=== PATIENT | male | born 1995 | race Caucasian/White ===

== ENCOUNTER 2020-01-22 15:58 | Inpatient (IN) | payer BC ==
[2020-01-22] MEDS ORDERED: SODIUM CHLORIDE 1,000 ML IV STA (15:59)
--- NOTE | 2020-01-22 15:59 | PDOC ---
History of Present Illness - General Chief Complaint: Pain, Acute Stated Complaint: ABD PAIN Time Seen by Provider: 01/22/20 15:58 History Source: Patient Exam Limitations: No Limitations - History of Present Illness Initial Comments: 01/22/20 15:59 HPI No past medical history presenting with periumbilical abdominal pain that started last night around 8 PM, today has migrated to the right lower quadrant, associated with decreased appetite, nausea, vomiting and diarrhea. Pt states last night he had diffuse abdominal pain. This morning he developed sharp RLQ pain, 6/10; he's had 2 episodes of watery brown diarrhea and 1 episode of NBNB emesis. sent in from urgent care for CT, r/o appy Denies fever, chills, chest pain, SOB, palpitation, dizziness, weakness, bladder and bowel problems, hematuria, urgency or frequency, flank pain, testicular or scrotal pain, focal weakness/paresthesias, leg swelling/pain, rash. No sick contacts or travel. No new changes in medications. No suspicious food intake. denies STDs. Allergies: None Past Medical History/PSH: as above Social history: No tobacco, ETOH or drug use. Meds: as documented in EMR Family history: noncontributory Review of systems Constitutional: no fevers or chills. No weakness HEENT: no headache or dizziness. No congestion. No visual/hearing disturbances. CVS: no cp or syncope. Resp: no sob. No cough. Gastrointestinal: +abdominal pain, nausea, vomiting, diarrhea. Genitourinary: no urinary sx, hematuria. no testicular or scrotal pain/swelling MUSCULOSKELETAL: No joint pain and swelling. No neck or back pain. SKIN: no redness or skin changes, no discharge, no rash. No wounds. Hematologic: no easy bruising/bleeding. NEUROLOGIC: No headache, dizziness, LOC or altered mental status. No weakness, numbness or tingling. Psych: no anxiety or depression Allergic/Immunologic: no allergies All other systems reviewed and negative, or as documented in HPI. Physical exam General: Well appearing, awake and alert, NAD. HEENT: NCAT, PERRL, EOMI, clear conjunctiva, anicteric, moist mucus membranes, clear oropharynx, no oral lesions.. Neck: neck supple, FROM Resp: CTAB, normal and even respirations, no respiratory distress CVS: RRR, no murmurs, 2+ peripheral pulses throughout, no peripheral edema Abdomen: soft, Nondistended, +RLQ and suprapubic TTP, no rebound or guarding. No CVAT Back: nontender, normal inspection and ROM MSK: no edema, CAGE x4, ROM intact. No clubbing or cyanosis. normal bulk and tone. Extremities: no calf tenderness Neuro: alert, oriented appropriately; no focal neurologic deficits Psych: Calm and cooperative Skin: warm and well perfused, cap refill <2 sec, normal color, no rash or skin discoloration. 01/22/20 16:37 Past History - Medical History Allergies/Adverse Reactions: Allergies Allergy/AdvReac Type Severity Reaction Status Date / Time No Known Allergies Allergy Verified 01/22/20 16:00 Home Medications: Ambulatory Orders NK [No Known Home Medication] 01/22/20 ED Treatment Course - LABORATORY CBC & Chemistry Diagram: 01/22/20 16:09 01/22/20 16:04 Medical Decision Making - Medical Decision Making 01/22/20 16:39 Vital Signs Temp Pulse Resp BP Pulse Ox 98.2 F 85 18 114/82 100 01/22/20 15:58 01/22/20 15:58 01/22/20 15:58 01/22/20 15:58 01/22/20 15:58 DDx abdominal pain: Renal colic, biliary colic, metabolic/electrolyte derangements. GERD, PUD, esophageal spasm, pancreatitis, hepatitis, constipa tion, colitis, gastroenteritis, cholecystitis, UTI, pyelonephritis, ileus, SBO, medication side effect, hernia, appendicitis, diverticulitis, msk strain, mesenteric adenitis, psoas abscess - no testicular sx to suggest torsion/infection - no peritoneal findings declines analgesia for the time being IVF given labs and lytes_normal, normal wbc ct. UA unremarkable for infection, some ketones, will given some hydration 01/22/20 17:09 CT with concentric wall thickening along the length of the colon suggesting acute colitis. There is also concentric appendiceal wall thickening with associated small amount of intraluminal fluid, mild periappendiceal soft tissue stranding could be appendicitis versus inflammation associated with colitis concomitantly. Patient is tender and clinically correlated for acute appendicitis as well as a colitis IV cefoxitin and flagyl for empiric coverage of appy/colitis Surgery consultation with Dr. James placed discussed clinical findings and CT a/p transfer to [facility] surg bed, plan for OR tomorrow, NPO after midnight pain control, IVF pt made aware of impression and plan. admit to Dr Daniele Ace, preparing for [facility] med/surg bed 01/22/20 17:19 Discharge - Discharge Information Problems reviewed: Yes Clinical Impression/Diagnosis: Colitis, Acute appendicitis Condition: Stable - Admission Yes - Follow up/Referral - Patient Discharge Instructions - Post Discharge Activity
[2020-01-22 16:33] LABS: BASO % 1.1 % (0-2.0); EOS % 1.7 % (0-4.5); HEMATOCRIT 45.3 % (35.4-49); HEMOGLOBIN 16.1 GM/dl (11.7-16.9); LYMPH % 18.7 % (8-40); MCH 29.5 pg (25.7-33.7); MCHC 35.6 g/dl (32.0-35.9); MEAN CELL VOLUME 82.9 fl (80-96); MEAN PLT VOLUME 9.2 fl (7.5-11.1); MONO % 7.8 % (3.8-10.2); NEUT % 70.7 % (42.8-82.8); PLATELET COUNT 227 K/MM3 (134-434); RBC 5.46 M/mm3 (4.00-5.60); RDW 12.2 % (11.9-15.9); WHITE BLOOD COUNT 9.1 K/mm3 (4.0-10.8)
[2020-01-22 16:38] LABS: ALBUMIN 4.6 g/dl (3.4-5.0); CALCIUM 9.4 mg/dl (8.5-10); POTASSIUM 3.8 mmol/L (3.5-5.1); TOT PROT 7.6 g/dl (6.4-8.2)
[2020-01-22] MEDS ORDERED: CEFOXITIN SODIUM 1 GM in DEXTROSE 5%-WATER - 100 ML IVPB ONE (17:15)
[2020-01-22 23:36] VITALS: BMI 22.8
--- NOTE | 2020-01-23 00:08 | PN ---
Teaching Attending Note Name of Resident: Nickolas Ortiz ATTENDING PHYSICIAN STATEMENT I saw and evaluated the patient. I reviewed the resident's note and discussed the case with the resident. I agree with the resident's findings and plan as documented. SUBJECTIVE: 24 years old M with no significant PMH presented to hospital with abd pain. As per patient abd pain was diffuse started last night around 10 pm. Associated symptoms were nausea,vomiting and diarrhea . After waking up pain re occurred and was more pronounced on RLQ \. He had 1 episode of NB vomiting. He denies chest pain, SOB, dizziness, LOC OBJECTIVE: Last Vital Signs Temp Pulse Resp BP Pulse Ox 98.3 F 69 16 122/67 99 01/22/20 21:30 01/22/20 21:30 01/22/20 21:30 01/22/20 21:30 01/22/20 21:30 Laboratory Results - last 24 hr 01/22/20 01/22/20 01/22/20 16:04 16:04 16:07 WBC RBC Hgb Hct MCV MCH MCHC RDW Plt Count MPV Absolute Neuts (auto) Neutrophils % Lymphocytes % Monocytes % Eosinophils % Basophils % Sodium 138 Potassium 3.8 Chloride 102 Carbon Dioxide 27 Anion Gap 9 BUN 11.0 Creatinine 1.0 Est GFR (CKD-EPI)AfAm 121.55 Est GFR (CKD-EPI)NonAf 104.88 Random Glucose 93 Calcium 9.4 Total Bilirubin 2.0 H AST 21 ALT 20 Alkaline Phosphatase 61 Total Protein 7.6 Albumin 4.6 Lipase 58 L Urine Color Yellow Urine Appearance Clear Urine pH 6.0 Urine Protein Negative Urine Glucose (UA) Negative Urine Ketones 2+ H Urine Blood Negative Urine Nitrite Negative Urine Bilirubin 1+ H Urine Urobilinogen 0.2 Ur Leukocyte Esterase Negative Blood Type O POSITIVE Antibody Screen Negative 01/22/20 01/22/20 16:09 16:15 WBC 9.1 RBC 5.46 Hgb 16.1 Hct 45.3 MCV 82.9 MCH 29.5 MCHC 35.6 RDW 12.2 Plt Count 227 MPV 9.2 Absolute Neuts (auto) 6.4 Neutrophils % 70.7 Lymphocytes % 18.7 Monocytes % 7.8 Eosinophils % 1.7 Basophils % 1.1 Sodium Potassium Chloride Carbon Dioxide Anion Gap BUN Creatinine Est GFR (CKD-EPI)AfAm Est GFR (CKD-EPI)NonAf Random Glucose Calcium Total Bilirubin AST ALT Alkaline Phosphatase Total Protein Albumin Lipase Urine Color Urine Appearance Urine pH Urine Protein Urine Glucose (UA) Urine Ketones Urine Blood Urine Nitrite Urine Bilirubin Urine Urobilinogen Ur Leukocyte Esterase Blood Type O POSITIVE Antibody Screen Negative GENERAL: Awake, alert, and fully oriented, not in distress HEAD: Normal with no signs of trauma. EYES: Pupils equal, round and reactive to light, extraocular movements intact, sclera anicteric, conjunctiva clear. EARS, NOSE, THROAT: Oropharynx clear without exudates. Moist mucous membranes. NECK: No JVD, or masses. LUNGS: Breath sounds equal, clear to auscultation bilaterally. No wheezes, and no crackles. No accessory muscle use. HEART: RRR normal S1 and S2 without murmur, rub or gallop. ABDOMEN: Soft, not distended, tender on RLQ, no rigidity, guarding MUSCULOSKELETAL: Normal range of motion at all joints. No CVA tenderness. UPPER EXTREMITIES: 2+ pulses, warm, well-perfused. No peripheral edema. LOWER EXTREMITIES: 2+ pulses, warm, well-perfused. No calf tenderness. No peripheral edema. NEUROLOGICAL: Cranial nerves II-XII intact. Normal speech. PSYCHIATRIC: Cooperative. Good eye contact. Appropriate mood and affect. SKIN: Warm, dry, normal turgor, no rashes or lesions noted. ASSESSMENT AND PLAN: Acute appendicitis Admit to floor IV hydration D5NS 125 ml/hour NPO surgery consulted, OR in AM analgesia PRN He already received 1 dose of antibiotics DVT ppx
--- NOTE | 2020-01-23 00:20 | HP ---
CHIEF COMPLAINT: abdominal pain PCP: none HISTORY OF PRESENT ILLNESS: 24 y/o male with no reported PMH c/o abdominal pain: initially generalized and now located in RLQ, started on evening of 01/20, radiating to umbilicus, sharp, associated non-bloody/non-musous diarrhea x2, associated NBNB emesis x1, worse with food, was 8/10 now there is no pain. This has never happened before. He has not had any new foods, traveled recently or had sick contacts. He denies fever, SOB, CP, joint pain, dysuria, hematuria. ER course was notable for: (1) CT consistent with period appendiceal stranding (2) Surgery consult and schedule for appendectomy 01/22 (3) S/p metronidazole PAST MEDICAL HISTORY: Denies PAST SURGICAL HISTORY: Denies Family history: Denies Social History: Smoking: denies (has tried but not smoked consistently) Alcohol: social (2 etoh beverages per week) Drugs: denies Works at [employer] Allergies: No Known Allergies Allergy (Verified 01/22/20 16:00) HOME MEDICATIONS: Medication Instructions Recorded NK [No Known Home Medication] 01/22/20 REVIEW OF SYSTEMS CONSTITUTIONAL: Absent: fever, chills, diaphoresis, generalized weakness, malaise, loss of appetite, weight change HEENT: Absent: rhinorrhea, nasal congestion, throat pain, throat swelling, difficulty swallowing, mouth swelling, ear pain, eye pain, visual changes CARDIOVASCULAR: Absent: chest pain, syncope, palpitations, irregular heart rate, lightheadedness, peripheral edema RESPIRATORY: Absent: cough, shortness of breath, dyspnea with exertion, orthopnea, wheezing, stridor, hemoptysis GASTROINTESTINAL: Absent: abdominal pain, abdominal distension, nausea, vomiting, diarrhea, constipation, melena, hematochezia GENITOURINARY: Absent: dysuria, frequency, urgency, hesitancy, hematuria, flank pain, genital pain MUSCULOSKELETAL: Absent: myalgia, arthralgia, joint swelling, back pain, neck pain SKIN: Absent: rash, itching, pallor HEMATOLOGIC/IMMUNOLOGIC: Absent: easy bleeding, easy bruising, lymphadenopathy, frequent infections ENDOCRINE: Absent: unexplained weight gain, unexplained weight loss, heat intolerance, cold intolerance NEUROLOGIC: Absent: headache, focal weakness or paresthesias, dizziness, unsteady gait, seizure, mental status changes, bladder or bowel incontinence PSYCHIATRIC: Absent: anxiety, depression, suicidal or homicidal ideation, hallucinations. PHYSICAL EXAMINATION Vital Signs - 24 hr 01/22/20 01/22/20 01/22/20 15:58 19:15 20:22 Temperature 98.2 F 98.0 F Pulse Rate 85 Pulse Rate [ 85 Left] Respiratory 18 18 Rate Blood Pressure 114/82 Blood Pressure 117/77 [Right Arm] O2 Sat by Pulse 100 100 100 Oximetry (%) 01/22/20 01/22/20 21:15 21:30 Temperature 98.3 F Pulse Rate 69 Pulse Rate [ Left] Respiratory 16 Rate Blood Pressure 122/67 Blood Pressure [Right Arm] O2 Sat by Pulse 99 99 Oximetry (%) GENERAL: Awake, alert, and fully oriented, in no acute distress. HEAD: Normal with no signs of trauma. EYES: Pupils equal, round and reactive to light, extraocular movements intact, sclera anicteric, conjunctiva clear. No lid lag. EARS, NOSE, THROAT: Ears normal, nares patent, oropharynx clear without exudates. Moist mucous membranes. NECK: Normal range of motion, supple without lymphadenopathy, JVD, or masses. LUNGS: Breath sounds equal, clear to auscultation bilaterally. No wheezes, and no crackles. No accessory muscle use. HEART: Regular rate and rhythm, normal S1 and S2 without murmur, rub or gallop. ABDOMEN: Soft, TTP on deep palpation to RLQ, not distended, normoactive bowel sounds, no guarding, no rebound, no masses. No hepatomegaly or splenomegaly. MUSCULOSKELETAL: Normal range of motion at all joints. No bony deformities or tenderness. No CVA tenderness. UPPER EXTREMITIES: 2+ pulses, warm, well-perfused. No cyanosis. No clubbing. No peripheral edema. LOWER EXTREMITIES: 2+ pulses, warm, well-perfused. No calf tenderness. No peripheral edema. NEUROLOGICAL: Cranial nerves II-XII intact. Normal speech. Normal gait. PSYCHIATRIC: Cooperative. Good eye contact. Appropriate mood and affect. SKIN: Warm, dry, normal turgor, no rashes or lesions noted, normal capillary refill. Laboratory Results - last 24 hr 01/22/20 01/22/20 01/22/20 16:04 16:04 16:07 WBC RBC Hgb Hct MCV MCH MCHC RDW Plt Count MPV Absolute Neuts (auto) Neutrophils % Lymphocytes % Monocytes % Eosinophils % Basophils % Sodium 138 Potassium 3.8 Chloride 102 Carbon Dioxide 27 Anion Gap 9 BUN 11.0 Creatinine 1.0 Est GFR (CKD-EPI)AfAm 121.55 Est GFR (CKD-EPI)NonAf 104.88 Random Glucose 93 Calcium 9.4 Total Bilirubin 2.0 H AST 21 ALT 20 Alkaline Phosphatase 61 Total Protein 7.6 Albumin 4.6 Lipase 58 L Urine Color Yellow Urine Appearance Clear Urine pH 6.0 Urine Protein Negative Urine Glucose (UA) Negative Urine Ketones 2+ H Urine Blood Negative Urine Nitrite Negative Urine Bilirubin 1+ H Urine Urobilinogen 0.2 Ur Leukocyte Esterase Negative Blood Type O POSITIVE Antibody Screen Negative 01/22/20 01/22/20 16:09 16:15 WBC 9.1 RBC 5.46 Hgb 16.1 Hct 45.3 MCV 82.9 MCH 29.5 MCHC 35.6 RDW 12.2 Plt Count 227 MPV 9.2 Absolute Neuts (auto) 6.4 Neutrophils % 70.7 Lymphocytes % 18.7 Monocytes % 7.8 Eosinophils % 1.7 Basophils % 1.1 Sodium Potassium Chloride Carbon Dioxide Anion Gap BUN Creatinine Est GFR (CKD-EPI)AfAm Est GFR (CKD-EPI)NonAf Random Glucose Calcium Total Bilirubin AST ALT Alkaline Phosphatase Total Protein Albumin Lipase Urine Color Urine Appearance Urine pH Urine Protein Urine Glucose (UA) Urine Ketones Urine Blood Urine Nitrite Urine Bilirubin Urine Urobilinogen Ur Leukocyte Esterase Blood Type O POSITIVE Antibody Screen Negative ASSESSMENT/PLAN: 24 y/o male with no reported PMH c/o abdominal pain for 24, found to have CT findings consistent with appendicitis. # Acute appendicitis - NPO - Pre-op labs, EKG, CXR - D5-NS @ 125 given NPO - Ofirmev for pain # DVT ppx - SCD # FEN - D5NS @ 125 - F/u in routine labs - NPO # Disposition - Admit to med/surg Nickolas Ortiz MD Visit type - Emergency Visit Emergency Visit: Yes ED Registration Date: 01/22/20 Care time: The patient presented to the Emergency Department on the above date and was hospitalized for further evaluation of their emergent condition. - New Patient This patient is new to me today: Yes Date on this admission: 01/23/20 - Critical Care Critical Care patient: No ATTENDING PHYSICIAN STATEMENT I saw and evaluated the patient. I reviewed the resident's note and discussed the case with the resident. I agree with the resident's findings and plan as documented. SUBJECTIVE: OBJECTIVE: ASSESSMENT AND PLAN:
[2020-01-23] MEDS ORDERED: ACETAMINOPHEN 325 MG TABLET (FP) PO PRN (00:21)
[2020-01-23] MEDS: DEXTROSE 5%-NORMAL SALINE 1,000 ML IV SCH ×3 (01:04→23:06)
[2020-01-23] MEDS ORDERED: ACETAMINOPHEN 1000 MG/100 ML VIAL (NON FORMULARY) IVPB PRN (03:16)
[2020-01-23 08:25] LABS: BASO % 0.5 % (0-2.0); EOS % 4.4 % (0-4.5); HEMATOCRIT 42.1 % (35.4-49); HEMOGLOBIN 14.4 GM/dL (11.7-16.9); LYMPH % 29.9 % (8-40); MCHC 34.2 g/dl (32.0-35.9); MEAN PLT VOLUME 9.4 fl (7.5-11.1); MONO % 10.3 % (3.8-10.2); NEUT % 54.9 % (42.8-82.8); PLATELET COUNT 171 K/MM3 (134-434); RBC 4.96 M/mm3 (4.00-5.60); RDW 12.9 % (11.9-15.9); WHITE BLOOD COUNT 4.7 K/mm3 (4.0-10.0)
[2020-01-23 08:43] LABS: ALBUMIN 3.4 g/dl (3.4-5.0); BILIRUBIN,TOTAL 1.4 mg/dL (0.2-1); BLOOD UREA NITROGEN 8.3 mg/dL (7-18); CALCIUM 8.6 mg/dL (8.5-10.1); CREATININE 0.8 mg/dL (0.55-1.3); MAGNESIUM 2.3 mg/dL (1.8-2.4); PHOSPHOROUS 3.2 mg/dL (2.5-4.9); POTASSIUM 3.3 mmol/L (3.5-5.1); TOT PROT 6.3 g/dl (6.4-8.2)
--- NOTE | 2020-01-23 10:44 | CONSULT ---
- Consultation REQUESTING PROVIDER: Maria Guadalupe GIBBONS CONSULT REQUEST: We have been asked to surgically evaluate this patient for poss ible acute appendicitis. PCP:Corrie Briggs HISTORY OF PRESENT ILLNESS:FRANCOP who is a 24 y/o who presented to the [facility] ER c/o abdominal pain; initially pain was crampy and generalized and the ? localized to the RLQ, started on evening of 01/20, radiating to umbilicus, sharp, associated non-bloody/non-musous diarrhea x2, associated emesis x1, worse with food, was 8/10 then no pain. This has never happened before. He has not had any new foods, traveled recently or had sick contacts. He denies fever, SOB, CP, joint pain, dysuria, hematuria. He denies EtOH intake or injury at work. PMHx: none PSHx: none Home Medications Medication Instructions Recorded NK [No Known Home Medication] 01/22/20 Allergies Allergy/AdvReac Type Severity Reaction Status Date / Time No Known Allergies Allergy Verified 01/22/20 16:00 REVIEW OF SYSTEMS: CONSTITUTIONAL: Absent: fever, chills, diaphoresis, generalized weakness, malaise, loss of appetite, weight change CARDIOVASCULAR: Absent: chest pain, syncope, palpitations, irregular heart rate, lightheadedness, peripheral edema RESPIRATORY: Absent: cough, shortness of breath, dyspnea with exertion, wheezing, stridor, hemoptysis GASTROINTESTINAL: Absent: abdominal pain, abdominal distension, nausea, vomiting, diarrhea, constipation, melena, hematochezia GENITOURINARY: Absent: dysuria, frequency, urgency, hesitancy, hematuria, flank pain, genital pain MUSCULOSKELETAL: Absent: myalgia, arthralgia, joint swelling, back pain, neck pain SKIN: Absent: rash, itching, pallor HEMATOLOGIC/IMMUNOLOGIC: Absent: easy bleeding, easy bruising, lymphadenopathy NEUROLOGIC: Absent: headache, focal weakness, paresthesias, dizziness, unsteady gait, seizure, mental status changes, bladder or bowel incontinence PSYCHIATRIC: Absent: anxiety, depression, suicidal or homicidal ideation, hallucinations. PHYSICAL EXAM: GENERAL: Awake, alert, and fully oriented, in no acute distress. HEAD: Normal with no signs of trauma. EYES: sclera anicteric, conjunctiva clear. NECK: Normal ROM, supple without lymphadenopathy, JVD, or masses. LUNGS: Clear to auscultation bilat anteriorly. No wheezes, and no crackles. No accessory muscle use. HEART: Regular rate and rhythm. No murmurs ABDOMEN: Soft,minimal if ant RLQ tenderness, not distended, normoactive bowel sounds, no guarding, no rebound, no masses. No organomegaly. No hernias; Rovsings; psoas and obturator signs are absent. MUSCULOSKELETAL: Normal ROM at all joints. No bony deformities or tenderness. No CVA tenderness. UPPER EXTREMITIES: 2+ pulses, warm, well-perfused. No cyanosis. Cap refill <2 seconds. No peripheral edema. LOWER EXTREMITIES: 2+ pulses, warm, well-perfused. No calf tenderness. No peripheral edema. NEUROLOGICAL: Normal speech, gait not observed. PSYCH: Cooperative. Good eye contact. Appropriate mood and affect. SKIN: Warm, dry, normal turgor, no rashes or lesions noted. Vital Signs Temperature 97.9 F 01/23/20 05:00 Pulse Rate 72 01/23/20 05:00 Respiratory Rate 18 01/23/20 05:00 Blood Pressure 109/68 01/23/20 05:00 O2 Sat by Pulse Oximetry (%) 99 01/23/20 05:00 Lab Results WBC 4.7 K/mm3 (4.0-10.0) 01/23/20 07: RBC 4.96 M/mm3 (4.00-5.60) 01/23/20 07: Hgb 14.4 GM/dL (11.7-16.9) 01/23/20 07: Hct 42.1 % (35.4-49) 01/23/20 07: MCV 85.0 fl (80-96) 01/23/20 07: MCHC 34.2 g/dl (32.0-35.9) 01/23/20 07: RDW 12.9 % (11.9-15.9) 01/23/20 07: Plt Count 171 K/MM3 (134-434) 01/23/20 07:29 Sodium 142 mmol/L (136-145) 01/23/20 07: Potassium 3.3 mmol/L (3.5-5.1) L 01/23/20 07: Chloride 106 mmol/L (98-107) 01/23/20 07:29 Carbon Dioxide 28 mmol/L (21-32) 01/23/20 07:29 Anion Gap 7 MMOL/L (8-16) L 01/23/20 07:29 BUN 8.3 mg/dL (7-18) 01/23/20 07:29 Creatinine 0.8 mg/dL (0.55-1.3) 01/23/20 07:29 Random Glucose 83 mg/dL (74-106) 01/23/20 07:29 Calcium 8.6 mg/dL (8.5-10.1) 01/23/20 07:29 Blood Type O POSITIVE 01/22/20 16:15 Antibody Screen Negative 01/22/20 16:15 CT scan a/p images and reports reviewed. IMP: abdominal pain; paulson colonic inflammation including the appendix; doubt acute appendicitis PLAN: Advise continued NPO/IVF/IVAB's/serial exams; he has no elevated WBC/temperature/VS; he appears comfortable w/o evidence of an acute surgical abdomen at this time. Ulices James MD FACS
[2020-01-23] MEDS: KCL 10 MEQ IVPB 10 MEQ/100 ML INFUS.BAG IVPB SCH ×3 (10:53→14:17)
--- NOTE | 2020-01-23 14:15 | PN ---
Physical Exam: SUBJECTIVE: Patient seen and examined, awake and relaxing comfortably in bed. Not experiencing any more pain. He has not eaten since coming to the hospital but is not feeling particularly hungry. Despite his thin body habitus patient endorsed usually having a strong appetite and eat much food - him not having an appetite now is unusual for him. Denies any other symptoms. Endorsed mild abdominal pain on deep palpation. OBJECTIVE: Vital Signs Period Temp Pulse Resp BP Sys/Puri Pulse Ox Last 24 Hr 97.9 F-98.3 F 69-85 16-18 106-122/55-82 96-100 GENERAL: thin body habitus, male with longer hair, awake, alert, fully oriented, in no acute distress. HEAD: Normal with no signs of trauma. EYES: PERRL, extraocular movements intact. LUNGS: CTAB, no crackles HEART: RRR, S1, S2 without murmur ABDOMEN: Soft, nondistended, active bowel sounds, nontender to shallow palpation, tender on deep palpation EXTREMITIES: 2+ pulses, warm, well-perfused, no edema. NEUROLOGICAL: Normal speech, symmetrical smile PSYCH: Normal mood and normal affect. SKIN: Warm, dry, normal turgor, no rashes or lesions noted Laboratory Results - last 24 hr 01/22/20 01/22/20 01/22/20 16:04 16:04 16:07 WBC RBC Hgb Hct MCV MCH MCHC RDW Plt Count MPV Absolute Neuts (auto) Neutrophils % Lymphocytes % Monocytes % Eosinophils % Basophils % Nucleated RBC % Sodium 138 Potassium 3.8 Chloride 102 Carbon Dioxide 27 Anion Gap 9 BUN 11.0 Creatinine 1.0 Est GFR (CKD-EPI)AfAm 121.55 Est GFR (CKD-EPI)NonAf 104.88 Random Glucose 93 Calcium 9.4 Phosphorus Magnesium Total Bilirubin 2.0 H AST 21 ALT 20 Alkaline Phosphatase 61 Total Protein 7.6 Albumin 4.6 Lipase 58 L Urine Color Yellow Urine Appearance Clear Urine pH 6.0 Urine Protein Negative Urine Glucose (UA) Negative Urine Ketones 2+ H Urine Blood Negative Urine Nitrite Negative Urine Bilirubin 1+ H Urine Urobilinogen 0.2 Ur Leukocyte Esterase Negative COVID-19 ([facility]) Blood Type O POSITIVE Antibody Screen Negative 01/22/20 01/22/20 01/22/20 16:09 16:15 17:15 WBC 9.1 RBC 5.46 Hgb 16.1 Hct 45.3 MCV 82.9 MCH 29.5 MCHC 35.6 RDW 12.2 Plt Count 227 MPV 9.2 Absolute Neuts (auto) 6.4 Neutrophils % 70.7 Lymphocytes % 18.7 Monocytes % 7.8 Eosinophils % 1.7 Basophils % 1.1 Nucleated RBC % Sodium Potassium Chloride Carbon Dioxide Anion Gap BUN Creatinine Est GFR (CKD-EPI)AfAm Est GFR (CKD-EPI)NonAf Random Glucose Calcium Phosphorus Magnesium Total Bilirubin AST ALT Alkaline Phosphatase Total Protein Albumin Lipase Urine Color Urine Appearance Urine pH Urine Protein Urine Glucose (UA) Urine Ketones Urine Blood Urine Nitrite Urine Bilirubin Urine Urobilinogen Ur Leukocyte Esterase COVID-19 ([facility]) Not detected Blood Type O POSITIVE Antibody Screen Negative 01/23/20 01/23/20 07:29 07:29 WBC 4.7 RBC 4.96 Hgb 14.4 Hct 42.1 MCV 85.0 MCH 29.0 MCHC 34.2 RDW 12.9 Plt Count 171 MPV 9.4 Absolute Neuts (auto) 2.6 Neutrophils % 54.9 Lymphocytes % 29.9 Monocytes % 10.3 H Eosinophils % 4.4 Basophils % 0.5 Nucleated RBC % 0 Sodium 142 Potassium 3.3 L Chloride 106 Carbon Dioxide 28 Anion Gap 7 L BUN 8.3 Creatinine 0.8 Est GFR (CKD-EPI)AfAm 144.91 Est GFR (CKD-EPI)NonAf 125.03 Random Glucose 83 Calcium 8.6 Phosphorus 3.2 Magnesium 2.3 Total Bilirubin 1.4 H AST 12 L ALT 18 Alkaline Phosphatase 60 Total Protein 6.3 L Albumin 3.4 Lipase Urine Color Urine Appearance Urine pH Urine Protein Urine Glucose (UA) Urine Ketones Urine Blood Urine Nitrite Urine Bilirubin Urine Urobilinogen Ur Leukocyte Esterase COVID-19 ([facility]) Blood Type Antibody Screen Active Medications Generic Name Dose Route Start Last Admin Trade Name Freq PRN Reason Stop Dose Admin Acetaminophen 1,000 mg 01/23/20 03:16 Ofirmev Injection - IVPB 01/24/20 03:17 Q6H PRN PAIN LEVEL 6-10 Dextrose/Sodium Chloride 1,000 mls @ 125 mls/hr 01/23/20 00:30 01/23/20 10:53 D5-Ns - IV 125 mls/hr ASDIR HOA Administration ASSESSMENT/PLAN: 24yo M with no significant PMHx presented with 1 day of abdominal pain, found to have CT findings consistent with acute colitis and appendiceal findings suggestive of primary appendicitis vs. appendectual inflammation associated with colitis. Was seen by Dr. James who does not currently recommend surgery. Symptoms improving and patient remains afebrile without leukocytosis. # acute colitis extending to the appendix - symptomatic improvement possible diagnosis: appendicitis, new-onset IBS, Crohn's disease vs. ulcerative colitis (IBD), COVID-related colitis. patient has never had these symptoms before. - received one dose of Cefoxitin and Metronidazole - started sozyn - ID consulted - appreciate recs - Continue clinically monitoring the patient - continue D5NS 125cc/h - continue Ofirmev for pain PRN # ID - COVID not detected # DVT ppx - SCDs # FEN - D5NS @ 125 - replete lytes PRN - NPO # Disposition - Admit to med/surg Visit type - Emergency Visit Emergency Visit: Yes ED Registration Date: 01/22/20 Care time: The patient presented to the Emergency Department on the above date and was hospitalized for further evaluation of their emergent condition. - New Patient This patient is new to me today: Yes Date on this admission: 01/23/20 - Critical Care Critical Care patient: No ATTENDING PHYSICIAN STATEMENT I saw and evaluated the patient. I reviewed the resident's note and discussed the case with the resident. I agree with the resident's findings and plan as documented. SUBJECTIVE: OBJECTIVE: ASSESSMENT AND PLAN:
[2020-01-23] MEDS ORDERED: PIPERACILLIN/TAZOB 3.375 GM 3.375 GM in DEXTROSE 5%-WATER - 50 ML IVPB SCH (15:15)
[2020-01-23] MEDS ORDERED: PIPERACILLIN/TAZOBACTAM 3.375 GM VIAL IVPB ONE (16:34)
[2020-01-23] MEDS ORDERED: DEXTROSE 5%-WATER - 50 ML IVPB ONE (16:34)
--- NOTE | 2020-01-23 16:48 | PN ---
Progress Note (short form) - Note Progress Note: ID CONSULT DICTATED PANCOLITIS ? ETIOLOGY OBTAIN BLOOD, STOOL CULTURES EMPIRIC ZOSYN
[2020-01-23] MEDS: PIPERACILLIN/TAZOB 3.375 GM 3.375 GM in DEXTROSE 5%-WATER - 50 ML IVPB SCH (17:13)
--- NOTE | 2020-01-23 18:23 | PN ---
Teaching Attending Note Name of Resident: Olga Cassidy ATTENDING PHYSICIAN STATEMENT I saw and evaluated the patient. I reviewed the resident's note and discussed the case with the resident. I agree with the resident's findings and plan as documented. SUBJECTIVE: Patient is feeling better, no fever or chills. OBJECTIVE: Vital Signs Temperature 97.9 F 01/23/20 14:00 Pulse Rate 67 01/23/20 14:00 Respiratory Rate 18 01/23/20 14:00 Blood Pressure 117/50 L 01/23/20 14:00 O2 Sat by Pulse Oximetry (%) 99 01/23/20 14:00 PE;per resident's note mild abdominal tenderness CBCD WBC 4.7 K/mm3 (4.0-10.0) 01/23/20 07: RBC 4.96 M/mm3 (4.00-5.60) 01/23/20 07:29 Hgb 14.4 GM/dL (11.7-16.9) 01/23/20 07: Hct 42.1 % (35.4-49) 01/23/20 07: MCV 85.0 fl (80-96) 01/23/20 07: MCHC 34.2 g/dl (32.0-35.9) 01/23/20 07: RDW 12.9 % (11.9-15.9) 01/23/20 07: Plt Count 171 K/MM3 (134-434) 01/23/20 07: MPV 9.4 fl (7.5-11.1) 01/23/20 07:29 CMP Sodium 142 mmol/L (136-145) 01/23/20 07: Potassium 3.3 mmol/L (3.5-5.1) L 01/23/20 07: Chloride 106 mmol/L (98-107) 01/23/20 07: Carbon Dioxide 28 mmol/L (21-32) 01/23/20 07:29 Anion Gap 7 MMOL/L (8-16) L 01/23/20 07:29 BUN 8.3 mg/dL (7-18) 01/23/20 07:29 Creatinine 0.8 mg/dL (0.55-1.3) 01/23/20 07:29 Random Glucose 83 mg/dL (74-106) 01/23/20 07:29 Calcium 8.6 mg/dL (8.5-10.1) 01/23/20 07:29 Total Bilirubin 1.4 mg/dL (0.2-1) H 01/23/20 07:29 AST 12 U/L (15-37) L 01/23/20 07:29 ALT 18 U/L (13-61) 01/23/20 07:29 Alkaline Phosphatase 60 U/L (45-117) 01/23/20 07:29 Total Protein 6.3 g/dl (6.4-8.2) L 01/23/20 07:29 Albumin 3.4 g/dl (3.4-5.0) 01/23/20 07:29 Current Medications Generic Name Dose Route Start Last Admin Trade Name Freq PRN Reason Stop Dose Admin Acetaminophen 1,000 mg 01/23/20 03:16 Ofirmev Injection - IVPB 01/24/20 03:17 Q6H PRN PAIN LEVEL 6-10 Dextrose/Sodium Chloride 1,000 mls @ 125 mls/hr 01/23/20 00:30 01/23/20 10:53 D5-Ns - IV 125 mls/hr ASDIR HOA Administration Piperacillin Sod/Tazobactam 50 mls @ 100 mls/hr 01/23/20 18:00 01/23/20 17:13 Sod 3.375 gm/ Dextrose IVPB Not Given Q8H-IV HOA Protocol Home Medications Medication Instructions Recorded NK [No Known Home Medication] 01/22/20 ASSESSMENT AND PLAN: This patient is a 24yom with no significant PMHx presented with 1 day of abdominal pain, and was found to have on CT: consistent with acute colitis / appendiceal findings suggestive of primary appendicitis vs. appendectual inflammation associated with colitis. Was seen by Dr. James who does not currently recommend surgery. Symptoms improving and patient remains afebrile without leukocytosis. # acute colitis extending to the appendix - as per Surgery , no need for surgery , continue IV antibiotics racheln , ID on the case, continue NPO for now - COVID not detected DVT ppx: SCDs
[2020-01-24] MEDS ORDERED: DEXTROSE 5%-WATER - 50 ML IVPB ONE ×3 (02:08→17:02)
[2020-01-24] MEDS ORDERED: PIPERACILLIN/TAZOBACTAM 3.375 GM VIAL IVPB ONE ×3 (02:08→17:02)
[2020-01-24] MEDS: DEXTROSE 5%-NORMAL SALINE 1,000 ML IV SCH ×3 (02:12→16:52)
[2020-01-24] MEDS: PIPERACILLIN/TAZOB 3.375 GM 3.375 GM in DEXTROSE 5%-WATER - 50 ML IVPB SCH ×3 (02:13→17:04)
[2020-01-24 08:12] LABS: BASO % 0.6 % (0-2.0); EOS % 5.4 % (0-4.5); HEMATOCRIT 42.4 % (35.4-49); HEMOGLOBIN 14.4 GM/dL (11.7-16.9); LYMPH % 31.6 % (8-40); MCH 28.8 pg (25.7-33.7); MCHC 33.9 g/dl (32.0-35.9); MEAN PLT VOLUME 9.5 fl (7.5-11.1); MONO % 11.3 % (3.8-10.2); NEUT % 51.1 % (42.8-82.8); PLATELET COUNT 188 K/MM3 (134-434); RBC 4.99 M/mm3 (4.00-5.60); RDW 13.2 % (11.9-15.9); WHITE BLOOD COUNT 4.6 K/mm3 (4.0-10.0)
[2020-01-24 08:38] LABS: ALBUMIN 3.4 g/dl (3.4-5.0); BLOOD UREA NITROGEN 6.4 mg/dL (7-18); CALCIUM 8.7 mg/dL (8.5-10.1); CREATININE 0.9 mg/dL (0.55-1.3); MAGNESIUM 2.2 mg/dL (1.8-2.4); PHOSPHOROUS 3.2 mg/dL (2.5-4.9); POTASSIUM 4.6 mmol/L (3.5-5.1)
[2020-01-24 08:41] LABS: BILIRUBIN,TOTAL 1.1 mg/dL (0.2-1); TOT PROT 6.1 g/dl (6.4-8.2)
--- NOTE | 2020-01-24 10:08 | PN ---
Progress Note (short form) - Note Progress Note: Attending Surgeon Seen in f/u; no c/o; he was started on clear liquids which he is tolerating; had loose stools VSS AF abdo-soft; non tender WBC-nl IMP: paulson colitis of ? origin PLAN: Continue as per primary team and GI; no evidence of an acute surgical abdomen. Ulices James MD FACS
--- NOTE | 2020-01-24 14:17 | PN ---
Physical Exam: SUBJECTIVE: Patient seen and examined, sleeping comfortably and easily arousable. Had some loose stools but otherwise denies any sorts of pain, diarrhea, vomitting, nausea, chills, SOB and is overall feling well besides being hungry. No events overnight. OBJECTIVE: Vital Signs Period Temp Pulse Resp BP Sys/Puri Pulse Ox Last 24 Hr 97.3 F-98.4 F 52-77 18-20 105-133/54-85 97-100 GENERAL: thin body habitus, male with longer hair, sleeping but easily arousable, alert, fully oriented, in no acute distress. HEAD: Normal with no signs of trauma. EYES: PERRL, extraocular movements intact. LUNGS: CTAB, no crackles HEART: RRR, S1, S2 without murmur ABDOMEN: Soft, nondistended, active bowel sounds, nontender to shallow and deep palpation EXTREMITIES: 2+ pulses, warm, well-perfused, no edema, negative obturator and psoas sign NEUROLOGICAL: Normal speech, symmetrical smile PSYCH: Normal mood and normal affect. SKIN: Warm, dry, normal turgor, no rashes or lesions noted Laboratory Results - last 24 hr 01/24/20 01/24/20 07:10 07:10 WBC 4.6 RBC 4.99 Hgb 14.4 Hct 42.4 MCV 85.0 MCH 28.8 MCHC 33.9 RDW 13.2 Plt Count 188 MPV 9.5 Absolute Neuts (auto) 2.4 Neutrophils % 51.1 Lymphocytes % 31.6 Monocytes % 11.3 H Eosinophils % 5.4 H Basophils % 0.6 Nucleated RBC % 0 Sodium 141 Potassium 4.6 Chloride 108 H Carbon Dioxide 29 Anion Gap 4 L BUN 6.4 L Creatinine 0.9 Est GFR (CKD-EPI)AfAm 138.06 Est GFR (CKD-EPI)NonAf 119.12 Random Glucose 104 Calcium 8.7 Phosphorus 3.2 Magnesium 2.2 Total Bilirubin 1.1 H AST 15 ALT 18 Alkaline Phosphatase 53 Total Protein 6.1 L Albumin 3.4 Active Medications Generic Name Dose Route Start Last Admin Trade Name Freq PRN Reason Stop Dose Admin Dextrose/Sodium Chloride 1,000 mls @ 125 mls/hr 01/23/20 00:30 01/24/20 06:42 D5-Ns - IV 125 mls/hr ASDIR HOA Administration Piperacillin Sod/Tazobactam 50 mls @ 100 mls/hr 01/23/20 18:00 01/24/20 10:49 Sod 3.375 gm/ Dextrose IVPB 100 mls/hr Q8H-IV HOA Administration Protocol ASSESSMENT/PLAN: 24yo M with no significant PMHx presented with 1 day of abdominal pain, found to have CT findings consistent with acute colitis and appendiceal findings suggestive of primary appendicitis vs. appendectual inflammation associated with colitis. Dr. James is following - does not currently recommend surgery. Symptoms improving and patient remains afebrile without leukocytosis. # acute colitis extending to the appendix - symptomatic improvement possible diagnosis: appendicitis, new-onset IBS, Crohn's disease vs. ulcerative colitis (IBD), COVID-related colitis. patient has never had these symptoms before. none of his family members have had similar symptoms and/or hospitalization - continue sozyn - ID consulted - appreciate recs: obtain stool and blood cultures - Continue clinically monitoring the patient - continue D5NS 125cc/h - continue Ofirmev for pain PRN # ID - COVID not detected - stool ova & parasite wet mount pending - ordered strongiloides antibody test as patient has mildly increasing monocytes and eosinophils - blood and stool cultures pending # DVT ppx - SCDs # FEN - D5NS @ 100 - replete lytes PRN - NPO # Disposition - Admit to med/surg Visit type - Emergency Visit Emergency Visit: No - New Patient This patient is new to me today: No - Critical Care Critical Care patient: No ATTENDING PHYSICIAN STATEMENT I saw and evaluated the patient. I reviewed the resident's note and discussed the case with the resident. I agree with the resident's findings and plan as documented. SUBJECTIVE: OBJECTIVE: ASSESSMENT AND PLAN:
--- NOTE | 2020-01-24 15:35 | PN ---
Progress Note, Physician History of Present Illness: CLINICALLY IMPROVED NO C/O ABDOMINAL PAIN NO N/V + LOOSE BM TODAY NO BLOOD NO F/C TOLERATING LIQUIDS - Current Medication List Current Medications: Active Medications Dextrose/Sodium Chloride (D5-Ns -) 1,000 mls @ 125 mls/hr IV ASDIR HOA Last Admin: 01/24/20 06:42 Dose: 125 mls/hr Documented by: Piperacillin Sod/Tazobactam (Sod 3.375 gm/ Dextrose) 50 mls @ 100 mls/hr IVPB Q8H-IV HOA; Protocol Last Admin: 01/24/20 10:49 Dose: 100 mls/hr Documented by: - Objective Vital Signs: Vital Signs Temperature 98.1 F 01/24/20 14:00 Pulse Rate 63 01/24/20 14:00 Respiratory Rate 01/24/20 14:00 Blood Pressure 109/61 01/24/20 14:00 O2 Sat by Pulse Oximetry (%) 99 01/24/20 14:00 Constitutional: Yes: No Distress Eyes: Yes: Conjunctiva Clear Cardiovascular: Yes: Regular Rate and Rhythm, S1, S2 Respiratory: Yes: CTA Bilaterally Gastrointestinal: Yes: Normal Bowel Sounds, Soft. No: Tenderness Edema: No Labs: CBC, BMP 01/24/20 07:10 01/24/20 07:10 Assessment/Plan COLITIS ? ETIOLOGY CLINICALLY IMPROVED STOOL STUDIES PENDING CONTINUE EMPIRIC ZOSYN
--- NOTE | 2020-01-24 16:24 | PN ---
Teaching Attending Note Name of Resident: Olga Cassidy ATTENDING PHYSICIAN STATEMENT I saw and evaluated the patient. I reviewed the resident's note and discussed the case with the resident. I agree with the resident's findings and plan as documented. SUBJECTIVE: OBJECTIVE: Vital Signs Temperature 98.1 F 01/24/20 14:00 Pulse Rate 63 01/24/20 14:00 Respiratory Rate 20 01/24/20 14:00 Blood Pressure 109/61 01/24/20 14:00 O2 Sat by Pulse Oximetry (%) 99 01/24/20 14:00 PE: no abdominal pain noted, per resident's note CBCD WBC 4.6 K/mm3 (4.0-10.0) 01/24/20 07:10 RBC 4.99 M/mm3 (4.00-5.60) 01/24/20 07:10 Hgb 14.4 GM/dL (11.7-16.9) 01/24/20 07:10 Hct 42.4 % (35.4-49) 01/24/20 07:10 MCV 85.0 fl (80-96) 01/24/20 07:10 MCHC 33.9 g/dl (32.0-35.9) 01/24/20 07:10 RDW 13.2 % (11.9-15.9) 01/24/20 07:10 Plt Count 188 K/MM3 (134-434) 01/24/20 07:10 MPV 9.5 fl (7.5-11.1) 01/24/20 07:10 CMP Sodium 141 mmol/L (136-145) 01/24/20 07:10 Potassium 4.6 mmol/L (3.5-5.1) 01/24/20 07:10 Chloride 108 mmol/L (98-107) H 01/24/20 07:10 Carbon Dioxide 29 mmol/L (21-32) 01/24/20 07:10 Anion Gap 4 MMOL/L (8-16) L 01/24/20 07:10 BUN 6.4 mg/dL (7-18) L 01/24/20 07:10 Creatinine 0.9 mg/dL (0.55-1.3) 01/24/20 07:10 Random Glucose 104 mg/dL (74-106) 01/24/20 07:10 Calcium 8.7 mg/dL (8.5-10.1) 01/24/20 07:10 Total Bilirubin 1.1 mg/dL (0.2-1) H 01/24/20 07:10 AST 15 U/L (15-37) 01/24/20 07:10 ALT 18 U/L (13-61) 01/24/20 07:10 Alkaline Phosphatase 53 U/L (45-117) 01/24/20 07:10 Total Protein 6.1 g/dl (6.4-8.2) L 01/24/20 07:10 Albumin 3.4 g/dl (3.4-5.0) 01/24/20 07:10 Current Medications Generic Name Dose Route Start Last Admin Trade Name Freq PRN Reason Stop Dose Admin Dextrose/Sodium Chloride 1,000 mls @ 125 mls/hr 01/23/20 00:30 01/24/20 06:42 D5-Ns - IV 125 mls/hr ASDIR HOA Administration Piperacillin Sod/Tazobactam 50 mls @ 100 mls/hr 01/23/20 18:00 01/24/20 10:49 Sod 3.375 gm/ Dextrose IVPB 100 mls/hr Q8H-IV HOA Administration Protocol Microbiology 01/23/20 17:40 Stool Clostridioides difficile Antigen - Final 01/23/20 17:40 Stool Clostridioides difficile Toxin Assay - Final negative result ASSESSMENT AND PLAN: This patient is a 24yom with no significant PMHx presented with 1 day of abdominal pain, found to have on CT findings consistent with acute colitis and appendiceal findings suggestive of primary appendicitis vs. appendectual inflammation associated with colitis. Was seen by Dr. James who does not currently recommend surgery. Symptoms improving and patient remains afebrile without leukocytosis. # acute colitis extending to the appendix - as per Surgery , no need for surgery , discussed with Dr ochoa upon dc to discharge the patient on cipro and flagyl, follow up with David within a week, and CT to be repeated in 2 weeks, continue IV zosyn , on full liquid diet - COVID not detected DVT ppx: SCDs
[2020-01-25] MEDS ORDERED: DEXTROSE 5%-WATER - 50 ML IVPB ONE ×2 (00:59→08:31)
[2020-01-25] MEDS ORDERED: PIPERACILLIN/TAZOBACTAM 3.375 GM VIAL IVPB ONE ×2 (00:59→08:30)
[2020-01-25] MEDS: DEXTROSE 5%-NORMAL SALINE 1,000 ML IV SCH ×2 (01:03→11:23)
[2020-01-25] MEDS: PIPERACILLIN/TAZOB 3.375 GM 3.375 GM in DEXTROSE 5%-WATER - 50 ML IVPB SCH ×2 (01:04→09:11)
[2020-01-25 09:06] LABS: BASO % 0.8 % (0-2.0); EOS % 4.8 % (0-4.5); HEMOGLOBIN 14.5 GM/dL (11.7-16.9); LYMPH % 36.3 % (8-40); MCH 28.8 pg (25.7-33.7); MCHC 33.8 g/dl (32.0-35.9); MEAN PLT VOLUME 9.4 fl (7.5-11.1); MONO % 9.3 % (3.8-10.2); NEUT % 48.8 % (42.8-82.8); PLATELET COUNT 207 K/MM3 (134-434); RBC 5.06 M/mm3 (4.00-5.60); RDW 13.3 % (11.9-15.9); WHITE BLOOD COUNT 4.6 K/mm3 (4.0-10.0)
[2020-01-25 09:29] LABS: ALBUMIN 3.4 g/dl (3.4-5.0); BILIRUBIN,TOTAL 0.8 mg/dL (0.2-1); CALCIUM 8.8 mg/dL (8.5-10.1); CREATININE 0.9 mg/dL (0.55-1.3); MAGNESIUM 2.2 mg/dL (1.8-2.4); PHOSPHOROUS 3.3 mg/dL (2.5-4.9); POTASSIUM 4.3 mmol/L (3.5-5.1); TOT PROT 6.2 g/dl (6.4-8.2)
[2020-01-25 09:34] LABS: BLOOD UREA NITROGEN 2.7 mg/dL (7-18)
--- NOTE | 2020-01-25 11:29 | EKG ---
Test Reason : Blood Pressure : / mmHG Vent. Rate : 066 BPM Atrial Rate : 066 BPM P-R Int : 140 ms QRS Dur : 098 ms QT Int : 406 ms P-R-T Axes : 047 063 057 degrees QTc Int : 425 ms NORMAL SINUS RHYTHM NORMAL ECG NO PREVIOUS ECGS AVAILABLE Confirmed by ROSHNI PRESLEY MD ([id number]) on 01/25/2020 11:28:56 AM Referred By: Confirmed By:ROSHNI PRESLEY MD
[2020-01-25 14:46] VITALS: BP 130/69; PULSE 73; TEMP 98.3
--- NOTE | 2020-01-25 15:07 | PN ---
Progress Note, Physician History of Present Illness: CLINICALLY IMPROVED NO C/O ABDOMINAL PAIN NO N/V SEMI-FORMED BM TODAY NO BLOOD NO F/C TOLERATING LIQUIDS - Objective Vital Signs: Vital Signs Temperature 98.3 F 01/25/20 14:00 Pulse Rate 73 01/25/20 14:00 Respiratory Rate 18 01/25/20 14:00 Blood Pressure 130/69 01/25/20 14:00 O2 Sat by Pulse Oximetry (%) 99 01/25/20 14:00 Constitutional: Yes: No Distress Eyes: Yes: Conjunctiva Clear Cardiovascular: Yes: Regular Rate and Rhythm, S1, S2 Respiratory: Yes: CTA Bilaterally Gastrointestinal: Yes: Normal Bowel Sounds, Soft. No: Tenderness Edema: No Labs: CBC, BMP 01/25/20 08:08 01/25/20 08:08 Assessment/Plan COLITIS ? ETIOLOGY CLINICALLY IMPROVED STOOL STUDIES NEGATIVE AGREE WITH ORAL ANTIBIOTIC THERAPY, OUTPATIENT GI FOLLOWUP
--- NOTE | 2020-01-25 15:22 | DS ---
Physical Exam: SUBJECTIVE: Patient seen and examined, feeling himself with no pain. Slept well and was able to walk around the hallway yesterday. Said that the liquid diet has been "okay" but that he is still a bit hungry. OBJECTIVE: Vital Signs Period Temp Pulse Resp BP Sys/Puri Pulse Ox Last 24 Hr 97.6 F-98.3 F 54-73 16-20 101-130/53-69 96-99 PHYSICAL EXAM GENERAL: thin body habitus, male with longer hair, sleeping but easily arousable, alert, fully oriented, in no acute distress. HEAD: Normal with no signs of trauma. EYES: PERRL, extraocular movements intact. LUNGS: CTAB, no crackles HEART: RRR, S1, S2 without murmur ABDOMEN: Soft, nondistended, active bowel sounds, nontender to shallow and deep palpation EXTREMITIES: 2+ pulses, warm, well-perfused, no edema, negative obturator and psoas sign NEUROLOGICAL: Normal speech, symmetrical smile PSYCH: Normal mood and normal affect. SKIN: Warm, dry, normal turgor, no rashes or lesions noted LABS Laboratory Results - last 24 hr 01/25/20 01/25/20 08:08 08:08 WBC 4.6 RBC 5.06 Hgb 14.5 Hct 43.0 MCV 85.0 MCH 28.8 MCHC 33.8 RDW 13.3 Plt Count 207 MPV 9.4 Absolute Neuts (auto) 2.3 Neutrophils % 48.8 Lymphocytes % 36.3 Monocytes % 9.3 Eosinophils % 4.8 H Basophils % 0.8 Nucleated RBC % 0 Sodium 142 Potassium 4.3 Chloride 109 H Carbon Dioxide 30 Anion Gap 3 L BUN 2.7 L* Creatinine 0.9 Est GFR (CKD-EPI)AfAm 138.06 Est GFR (CKD-EPI)NonAf 119.12 Random Glucose 105 Calcium 8.8 Phosphorus 3.3 Magnesium 2.2 Total Bilirubin 0.8 AST 11 L ALT 15 Alkaline Phosphatase 53 Total Protein 6.2 L Albumin 3.4 HOSPITAL COURSE: 24yo M with no significant PMHx presented to the hospital on 01/22/2020 with 1 day of abdominal pain,non-bloody/non-musous diarrhea x2, and NBNB emesis x1 found. CT findings were consistent with acute colitis and appendiceal findings suggestive of primary appendicitis vs. appendectual inflammation associated with colitis. Patient was seen by surgery who did not see the need for any acute procedure. Patient was treated with fluids, abx, and pain was well controlled. P atient will follow up with GI in one week and will receive repeat CT scan in two weeks. Patient remains afebrile without leukocytosis and has been optimized for discharge home. Date of Admission:01/22/20 Date of Discharge: 01/25/20 Minutes to complete discharge: 37 Discharge Summary Problems reviewed: Yes Reason For Visit: APPENDICITIS Condition: Stable - Instructions Diet, Activity, Other Instructions: Hospital course: You came to the hospital due to severe abdominal pain, diarrhea and vomiting, and were found to have inflammation of your large intestine. We treated you with fluids and medications to help you feel better. Medications: We are sending you home with the following medications, please make sure to take them exactly as prescribed. - Levofloxacin 500mg once per day for 10 days. Take your first dose on 01/26/2020. - Metronidazole (flagyl) 500mg every 8 hours for 10 days. This means you will take 3 doses each day . Take your first dose on 01/26/2020. NO alcohol with Flagyl since can cause a major reaction for as little as 3ml alcohol. Follow-up appointments: Please follow up with your umbrella repairer Dr. Hernandez in one week. Imaging: You will need a repeat CT scan in two weeks - discuss this with Dr. Hernandez as he will be ordering this for you. Diet: It is very important that you stay away from any foods that can cause bloating or irritation. Therefore, avoid fatty foods or foods with much fiber and eat a "low residue" diet. Activity/Exercise: We recommend NO exercise as you intestines are in the healing process. Also, please keep in mind that sexual activity is considered exercise and could poten tially also cause you harm in these circumstances. Therefore, use caution if engaging in sexual activities. Other instructions: If you experience worsening of your symptoms such as worsening abdominal pain, nausea, vomiting, diarrhea, fever/chills, please report to the nearest emergency room or call 911. Referrals: Richar Hernandez MD [Staff Physician] - 1 Week Disposition: HOME - Home Medications Comprehensive Discharge Medication List: Ambulatory Orders Levofloxacin [Levaquin] 500 mg PO DAILY 10 Days #10 tablet 01/25/20 Metronidazole 500 mg PO Q8H 10 Days #30 tablet 01/25/20 This patient is new to me today: No Emergency Visit: Yes ED Registration Date: 01/22/20 Care time: The patient presented to the Emergency Department on the above date and was hospitalized for further evaluation of their emergent condition. Critical Care patient: No - Discharge Referral Referred to [facility] Med P.C.: No ATTENDING PHYSICIAN STATEMENT I saw and evaluated the patient. I reviewed the resident's note and discussed the case with the resident. I agree with the resident's findings and plan as documented. SUBJECTIVE: OBJECTIVE: ASSESSMENT AND PLAN:
--- NOTE | 2020-01-25 16:52 | PN ---
Teaching Attending Note Name of Resident: Olga Cassidy ATTENDING PHYSICIAN STATEMENT I saw and evaluated the patient. I reviewed the resident's note and discussed the case with the resident. I agree with the resident's findings and plan as documented. SUBJECTIVE: Patient is feeling better with no fever or chills, no abdominal pain. OBJECTIVE: Vital Signs Temperature 98.3 F 01/25/20 14:00 Pulse Rate 73 01/25/20 14:00 Respiratory Rate 18 01/25/20 14:00 Blood Pressure 130/69 01/25/20 14:00 O2 Sat by Pulse Oximetry (%) 99 01/25/20 14:00 PE: per resident's note CBCD WBC 4.6 K/mm3 (4.0-10.0) 01/25/20 08:08 RBC 5.06 M/mm3 (4.00-5.60) 01/25/20 08:08 Hgb 14.5 GM/dL (11.7-16.9) 01/25/20 08:08 Hct 43.0 % (35.4-49) 01/25/20 08:08 MCV 85.0 fl (80-96) 01/25/20 08:08 MCHC 33.8 g/dl (32.0-35.9) 01/25/20 08:08 RDW 13.3 % (11.9-15.9) 01/25/20 08:08 Plt Count 207 K/MM3 (134-434) 01/25/20 08:08 MPV 9.4 fl (7.5-11.1) 01/25/20 08:08 CMP Sodium 142 mmol/L (136-145) 01/25/20 08:08 Potassium 4.3 mmol/L (3.5-5.1) 01/25/20 08:08 Chloride 109 mmol/L (98-107) H 01/25/20 08:08 Carbon Dioxide 30 mmol/L (21-32) 01/25/20 08:08 Anion Gap 3 MMOL/L (8-16) L 01/25/20 08:08 BUN 2.7 mg/dL (7-18) L* 01/25/20 08:08 Creatinine 0.9 mg/dL (0.55-1.3) 01/25/20 08:08 Random Glucose 105 mg/dL (74-106) 01/25/20 08:08 Calcium 8.8 mg/dL (8.5-10.1) 01/25/20 08:08 Total Bilirubin 0.8 mg/dL (0.2-1) 01/25/20 08:08 AST 11 U/L (15-37) L 01/25/20 08:08 ALT 15 U/L (13-61) 01/25/20 08:08 Alkaline Phosphatase 53 U/L (45-117) 01/25/20 08:08 Total Protein 6.2 g/dl (6.4-8.2) L 01/25/20 08:08 Albumin 3.4 g/dl (3.4-5.0) 01/25/20 08:08 Home Medications Medication Instructions Recorded Levofloxacin [Levaquin] 500 mg PO DAILY 10 Days #10 tablet 01/25/20 Metronidazole 500 mg PO Q8H 10 Days #30 tablet 01/25/20 Microbiology 01/23/20 17:40 Stool Salmonella/Shigella Culture - Preliminary NO ENTERIC PATHOGENS, 24 HOURS, ON PRIMARY PLATES 01/23/20 17:40 Stool Vibrio Culture - Final NO GROWTH OF VIBRIO SPECIES OBTAINED 01/23/20 17:40 Stool Escherichia coli 0157 Culture - Final NO GROWTH OF E COLI 0157 OBTAINED 01/23/20 18:50 Blood - Peripheral Venous Blood Culture - Preliminary NO GROWTH OBTAINED AFTER 24 HOURS, INCUBATION TO CONTINUE FOR 4 DAYS. 01/23/20 18:45 Blood - Peripheral Venous Blood Culture - Preliminary NO GROWTH OBTAINED AFTER 24 HOURS, INCUBATION TO CONTINUE FOR 4 DAYS. 01/23/20 17:40 Stool Clostridioides difficile Antigen - Final 01/23/20 17:40 Stool Clostridioides difficile Toxin Assay - Final ASSESSMENT AND PLAN: This patient is a 24yom with no significant PMHx presented with 1 day of abdominal pain, found to have on CT findings consistent with acute colitis and appendiceal findings suggestive of primary appendicitis vs. appendectual inflammation associated with colitis. Was seen by Dr. James who does not currently recommend surgery. Symptoms improving and patient remains afebrile without leukocytosis. # acute colitis extending to the appendix - as per Surgery , no need for surgery , discussed with Dr ochoa , will follow up with him as an outpatient within a week and CT needs to be repeATED in 2 weeks, discussed with dr Ochoa. will dc the patient on Levaquin and flagyl , discussed with DR Talley agrees with the plan. continue low fiber and low residue diet. - COVID not detected dc patient home.
== END 2020-01-25 14:44 | disposition home or self-care (01) | DRG 392 ==
LOC: FER 15:58 → J5S 21:15
PROVIDERS: ADMIT Internal Medicine; ATTEND Internal Medicine
DX: K52.9 Noninfective gastroenteritis and colitis, unspecified (principal); R10.31 Right lower quadrant pain
CPT/HCPCS: 36415; 71045-TC-FY; 74177-TC; 80053; 81003; 83690; 83735; 84100; 85025; 86682; 86850; 86900; 86901; 87040; 87045; 87046; 87177; 87209; 87324; 87449; 93005; 93010; 99285-25; Q9967; U0003

== ENCOUNTER 2022-07-10 04:18 | Day surgery (SDC) | payer OTHER ==
[2022-07-07 12:12] VITALS: BMI 23.6
[2022-07-10] MEDS ORDERED: MIDAZOLAM HCL 2 MG/2 ML SINGLE DOSE VIAL ONE (09:42)
[2022-07-10] MEDS ORDERED: PROPOFOL 20 ML ONE (09:42)
[2022-07-10] MEDS ORDERED: BUPIVACAINE HCL/PF 0.5% (5MG/ML) 10 ML VIAL ONE (10:10)
[2022-07-10] MEDS ORDERED: CEFOXITIN SODIUM 1 GM IVPB ONE (10:42)
[2022-07-10] MEDS ORDERED: cefOXitin SODIUM 2 GM VIAL (RESTRICTED TO ID) IVPB ONE ×2 (10:43→10:45)
[2022-07-10] MEDS ORDERED: BUPIVACAINE HCL/PF 0.5% (5MG/ML) 10 ML VIAL NR ONE ×2 (10:54)
[2022-07-10] MEDS ORDERED: NEOSTIGMINE METHYLSULFATE 0.5 MG/ML - 10 ML MDV ONE (11:35)
[2022-07-10] MEDS ORDERED: GLYCOPYRROLATE 0.2 MG/1 ML VIAL ONE (11:35)
[2022-07-10] MEDS ORDERED: ONDANSETRON 4 MG/2 ML VIAL IVPUSH PRN (12:02)
[2022-07-10] MEDS ORDERED: oxyCODONE HCL 5 MG TABLET PO PRN (12:02)
[2022-07-10] MEDS ORDERED: LACTATED RINGERS SOLUTION 1,000 ML IV SCH (12:15)
[2022-07-10] MEDS ORDERED: ONDANSETRON 4 MG/2 ML VIAL IVPUSH ONE (13:05)
[2022-07-10 13:40] VITALS: RESP 18
[2022-07-10] MEDS ORDERED: ONDANSETRON 4 MG/2 ML VIAL ONE (14:45)
[2022-07-10] MEDS ORDERED: ONDANSETRON 4 MG/2 ML VIAL IVPB ONE (14:50)
[2022-07-10 16:43] VITALS: BP 110/66; PULSE 71; TEMP 98.1
== END 2022-07-10 16:25 | disposition home or self-care (01) ==
LOC: JASU-SURG 04:18
PROVIDERS: ATTEND Surgery
PROC: 0DTJ4ZZ Resection of Appendix, Percutaneous Endoscopic Approach (ICD-10-PCS; principal; 2022-07-10 09:30)
DX: K36 Other appendicitis (principal)
CPT/HCPCS: 88304-TC; 94760